=== PATIENT | female | born 1995 | race Caucasian/White ===

== ENCOUNTER 2017-03-20 22:08 | Emergency (ER) | payer MEDICAID, OTHER ==
[2017-03-20] MEDS ORDERED: Ketorolac 30 MG/ML SDV IVPUSH ONE (22:35)
[2017-03-20] MEDS ORDERED: Metoclopramide 10 MG/2 ML SDV IVPUSH ONE (22:35)
[2017-03-20] MEDS ORDERED: Sodium Chloride 0.9% 1,000 ML IV ONE (22:35)
[2017-03-20] MEDS ORDERED: diphenhydrAMINE 50 MG/ML SDV IVPUSH ONE (22:36)
--- NOTE | 2017-03-20 22:41 | EDM.PDOC ---
ED HPI GENERAL MEDICAL PROBLEM - General Chief Complaint: Headache Stated Complaint: PT HAS FEVER Time Seen by Provider: 03/20/17 22:25 - History of Present Illness INITIAL COMMENTS - FREE TEXT/NARRATIVE: HISTORY AND PHYSICAL: History of present illness: Patient 21-year-old female with history of chronic intermittent headaches this is a complex history in which patient was seen and at one point transferred to [place] she had a myriad of tests including spinal tap CT and at one point per her mother the entertain a diagnosis of pseudotumor cerebri but did eliminate this diagnosis ultimately and had prescribed her caffeine which had controlled her headaches extremely well she has had one in the last 2-1/2 years. She comes in now with fever and headache she denies neck stiffness or pain she has some photophobia no vomiting no visual disturbance or other neurological signs or symptoms she denies chest pain cough shortness of breath abdominal pain urinary symptoms Review of systems: As per history of present illness and below otherwise all systems reviewed and negative. Past medical history: As per history of present illness and as reviewed below otherwise noncontributory. Surgical history: As per history of present illness and as reviewed below otherwise noncontributory. Social history: No reported history of drug or alcohol abuse. Family history: As per history of present illness and as reviewed below otherwise noncontributory. Physical exam: HEENT: Atraumatic, normocephalic, pupils reactive, negative for conjunctival pallor or scleral icterus, mucous membranes moist, throat clear, neck supple, nontender, trachea midline. Lungs: Clear to auscultation, breath sounds equal bilaterally, chest nontender. Heart: S1S2, regular, negative for clicks, rubs, or JVD. Abdomen: Soft, nondistended, nontender. Negative for masses or hepatosplenomegaly. Negative for costovertebral tenderness. Pelvis: Stable nontender. Genitourinary: Deferred. Rectal: Deferred. Extremities: Atraumatic, negative for cords or calf pain. Neurovascular unremarkable. Neuro: Awake, alert, oriented. Cranial nerves II through XII unremarkable. Cerebellum unremarkable. Motor and sensory unremarkable throughout. Exam nonfocal. Diagnostics: CBC CMP hCG urine drug screen CT brain Therapeutics: Normal saline 1 L bolus Reglan 10 mg IV Benadryl 50 mg IV Toradol 30 mg IV Motrin 400 mg by mouth Impression: #1 cephalgia #2 fever Definitive disposition and diagnosis as appropriate pending reevaluation and review of above. headache Pain Score (Numeric/FACES): 10 - Related Data Allergies Allergy/AdvReac Type Severity Reaction Status Date / Time sertraline HCl [From Zoloft] Allergy Rash Verified 03/20/17 22:18 Home Meds: Home Meds . 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: Musculoskeletal History: Reports: None Neurological History: Reports: Migraines Psychiatric History: Reports: None Endocrine/Metabolic History: Reports: None Hematologic History: Reports: None Immunologic History: Reports: None Oncologic (Cancer) History: Reports: None Dermatologic History: Reports: None - Infectious Disease History Infectious Disease History: Reports: None Other Infectious Disease History: chlamydia - Past Surgical History Head Surgeries/Procedures: Reports: None Social & Family History - Family History Family Medical History: Noncontributory - Tobacco Use Smoking Status *Q: Current Some Day Smoker Years of Tobacco use: 1 Packs/Tins Daily: 0.5 - Caffeine Use Caffeine Use: Reports: Energy Drinks - Recreational Drug Use Recreational Drug Use: No ED ROS GENERAL - Review of Systems Review Of Systems: ROS reveals no pertinent complaints other than HPI. ED EXAM, GENERAL - Physical Exam Exam: See Below (See dictation) Course - Vital Signs Text/Narrative:: Patient had some improvement rates her headache 7 out of 10 and discuss with her spinal tap in light of her fever with no identifiable source at this time and headache patient refuses a spinal tap reevaluation continues to demonstrate a supple neck. I discussed with patient IV caffeine for her persistent headache in light of similar success prior and patient agrees. Last Recorded V/S: Last Vital Signs Temp 37.9 C 03/20/17 23:45 Pulse 102 H 03/20/17 23:45 Resp 20 03/20/17 23:45 BP 106/57 L 03/20/17 23:45 Pulse Ox 96 03/20/17 23:45 - Orders/Labs/Meds Orders: Active Orders 24 hr Category Date Time Status Chest 1V Frontal [CR] Stat Exams 03/20/17 23:49 Taken Head wo Cont [CT] Stat Exams 03/20/17 22:36 Taken Labs: Laboratory Tests 03/20/17 03/20/17 03/20/17 Range/Units 22:26 22:26 22:26 WBC (4.0-11.0) K/uL RBC (4.30-5.90) M/uL Hgb (12.0-16.0) g/dL Hct (36.0-46.0) % MCV (80.0-98.0) fL MCH (27.0-32.0) pg MCHC (31.0-37.0) g/dL RDW Std Deviation (28.0-62.0) fl RDW Coeff of Nichole (11.0-15.0) % Plt Count (150-400) K/uL MPV (7.40-12.00) fL Neut % (Auto) (48.0-80.0) % Lymph % (Auto) (16.0-40.0) % Gage % (Auto) (0.0-15.0) % Eos % (Auto) (0.0-7.0) % Baso % (Auto) (0.0-1.5) % Neut # (Auto) (1.4-5.7) K/uL Lymph # (Auto) (0.6-2.4) K/uL Gage # (Auto) (0.0-0.8) K/uL Eos # (Auto) (0.0-0.7) K/uL Baso # (Auto) (0.0-0.1) K/uL Nucleated RBC % /100WBC Nucleated RBCs # K/uL Sodium (136-146) mmol/L Potassium (3.5-5.1) mmol/L Chloride (98-110) mmol/L Carbon Dioxide (21-31) mmol/L BUN (6.0-23.0) mg/dL Creatinine (0.6-1.5) mg/dL Est Cr Clr Drug Dosing mL/min Estimated GFR (MDRD) ml/min Glucose (60-110) mg/dL Calcium (8.8-10.8) mg/dL Total Bilirubin (0.1-1.5) mg/dL AST (5-40) IU/L ALT (8-54) IU/L Alkaline Phosphatase (40-150) Total Protein (6.0-8.0) g/dL Albumin (3.5-5.0) g/dL Globulin (2.0-3.5) g/dL Albumin/Globulin Ratio (1.3-2.8) Urine Color YELLOW Urine Appearance CLEAR Urine pH 6.5 (5.0-8.0) Ur Specific [place] 1.010 (1.001-1.035) Urine Protein NEGATIVE (NEGATIVE) mg/dL Urine Glucose (UA) NEGATIVE (NEGATIVE) mg/dL Urine Ketones >=80 (NEGATIVE) mg/dL Urine Occult Blood NEGATIVE (NEGATIVE) Urine Nitrite NEGATIVE (NEGATIVE) Urine Bilirubin NEGATIVE (NEGATIVE) Urine Urobilinogen 0.2 (<2.0) EU/dL Ur Leukocyte Esterase TRACE (NEGATIVE) Urine RBC 0-2 (0-2/HPF) Urine WBC 1-3 (0-5/HPF) Ur Epithelial Cells MANY (NONE-FEW) Urine Bacteria FEW (NEGATIVE) Urine HCG, Qual NEGATIVE (NEGATIVE) Urine Opiates Screen POSITIVE (NEGATIVE) Ur Oxycodone Screen NEGATIVE (NEGATIVE) Urine Methadone Screen NEGATIVE (NEGATIVE) Ur Barbiturates Screen POSITIVE (NEGATIVE) Ur Phencyclidine Scrn NEGATIVE (NEGATIVE) Ur Amphetamine Screen NEGATIVE (NEGATIVE) U Methamphetamines Scrn NEGATIVE (NEGATIVE) U Benzodiazepines Scrn NEGATIVE (NEGATIVE) U Cocaine Metab Screen NEGATIVE (NEGATIVE) U Marijuana (THC) Screen NEGATIVE (NEGATIVE) 03/20/17 03/20/17 Range/Units 22:48 22:48 WBC 16.90 H (4.0-11.0) K/uL RBC 4.52 (4.30-5.90) M/uL Hgb 14.1 (12.0-16.0) g/dL Hct 41.3 (36.0-46.0) % MCV 91.4 (80.0-98.0) fL MCH 31.2 (27.0-32.0) pg MCHC 34.1 (31.0-37.0) g/dL RDW Std Deviation 42.4 (28.0-62.0) fl RDW Coeff of Nichole 13 (11.0-15.0) % Plt Count 238 (150-400) K/uL MPV 10.20 (7.40-12.00) fL Neut % (Auto) 79.1 (48.0-80.0) % Lymph % (Auto) 11.5 L (16.0-40.0) % Gage % (Auto) 8.9 (0.0-15.0) % Eos % (Auto) 0.4 (0.0-7.0) % Baso % (Auto) 0.1 (0.0-1.5) % Neut # (Auto) 13.4 H (1.4-5.7) K/uL Lymph # (Auto) 1.9 (0.6-2.4) K/uL Gage # (Auto) 1.5 H (0.0-0.8) K/uL Eos # (Auto) 0.1 (0.0-0.7) K/uL Baso # (Auto) 0.0 (0.0-0.1) K/uL Nucleated RBC % 0.0 /100WBC Nucleated RBCs # 0 K/uL Sodium 138 (136-146) mmol/L Potassium 3.9 (3.5-5.1) mmol/L Chloride 104 (98-110) mmol/L Carbon Dioxide 24 (21-31) mmol/L BUN 12 (6.0-23.0) mg/dL Creatinine 0.9 (0.6-1.5) mg/dL Est Cr Clr Drug Dosing 105.07 mL/min Estimated GFR (MDRD) > 60.0 ml/min Glucose 89 (60-110) mg/dL Calcium 9.1 (8.8-10.8) mg/dL Total Bilirubin 0.5 (0.1-1.5) mg/dL AST 17 (5-40) IU/L ALT 11 (8-54) IU/L Alkaline Phosphatase 120 (40-150) Total Protein 7.8 (6.0-8.0) g/dL Albumin 4.4 (3.5-5.0) g/dL Globulin 3.4 (2.0-3.5) g/dL Albumin/Globulin Ratio 1.3 (1.3-2.8) Urine Color Urine Appearance Urine pH (5.0-8.0) Ur Specific [place] (1.001-1.035) Urine Protein (NEGATIVE) mg/dL Urine Glucose (UA) (NEGATIVE) mg/dL Urine Ketones (NEGATIVE) mg/dL Urine Occult Blood (NEGATIVE) Urine Nitrite (NEGATIVE) Urine Bilirubin (NEGATIVE) Urine Urobilinogen (<2.0) EU/dL Ur Leukocyte Esterase (NEGATIVE) Urine RBC (0-2/HPF) Urine WBC (0-5/HPF) Ur Epithelial Cells (NONE-FEW) Urine Bacteria (NEGATIVE) Urine HCG, Qual (NEGATIVE) Urine Opiates Screen (NEGATIVE) Ur Oxycodone Screen (NEGATIVE) Urine Methadone Screen (NEGATIVE) Ur Barbiturates Screen (NEGATIVE) Ur Phencyclidine Scrn (NEGATIVE) Ur Amphetamine Screen (NEGATIVE) U Methamphetamines Scrn (NEGATIVE) U Benzodiazepines Scrn (NEGATIVE) U Cocaine Metab Screen (NEGATIVE) U Marijuana (THC) Screen (NEGATIVE) Meds: Medications Discontinued Medications Generic Name Dose Route Start Last Admin Trade Name Chloe PRN Reason Stop Dose Admin Acetaminophen 1,000 mg 03/20/17 22:59 03/20/17 23:17 Tylenol Extra Strength PO 03/20/17 23:00 1,000 mg ONETIME ONE Administration Diphenhydramine HCl 50 mg 03/20/17 22:36 03/20/17 22:55 Benadryl IVPUSH 03/20/17 22:37 50 mg ONETIME ONE Administration Sodium Chloride 1,000 mls @ 999 mls/hr 03/20/17 22:35 03/20/17 22:49 Normal Saline IV 03/20/17 23:35 999 mls/hr .Bolus ONE Administration Caffeine Citrated 500 mg/ 75 mls @ 200 mls/hr 03/20/17 23:53 Dextrose/Water IV 03/21/17 00:15 ONETIME ONE Caffeine Citrated 240 mg/ 62 mls @ 124 mls/hr 03/21/17 00:15 03/21/17 00:29 Dextrose/Water IV 03/21/17 00:44 124 mls/hr ONETIME ONE Administration Ketorolac Tromethamine 30 mg 03/20/17 22:35 03/20/17 22:52 Toradol IVPUSH 03/20/17 22:36 30 mg ONETIME ONE Administration Metoclopramide HCl 10 mg 03/20/17 22:35 03/20/17 22:50 Reglan IVPUSH 03/20/17 22:36 10 mg ONETIME ONE Administration Departure - Departure Time of Disposition: 00:44 Disposition: Against Medical Advice 07 Condition: Good Clinical Impression: Cephalgia, Leukocytosis, Fever - Discharge Information Referrals: PCP,None [Primary Care Provider] - Forms: ED Department Discharge Additional Instructions: The following information is given to patients seen in the emergency department who are being discharged to home. This information is to outline your options for follow-up care. We provide all patients seen in our emergency department with a follow-up referral. The need for follow-up, as well as the timing and circumstances, are variable depending upon the specifics of your emergency department visit. If you don't have a primary care physician on staff, we will provide you with a referral. We always advise you to contact your personal physician following an emergency department visit to inform them of the circumstance of the visit and for follow-up with them and/or the need for any referrals to a consulting specialist. The emergency department will also refer you to a specialist when appropriate. This referral assures that you have the opportunity for followup care with a specialist. All of these measure are taken in an effort to provide you with optimal care, which includes your followup. Under all circumstances we always encourage you to contact your private physician who remains a resource for coordinating your care. When calling for followup care, please make the office aware that this follow-up is from your recent emergency room visit. If for any reason you are refused follow-up, please contact the [facility] emergency department at and asked to speak to the emergency department charge nurse. [facility] - Neurology Professional [address], [address] [place] [address] Motrin/Tylenol as directed Follow-up FIDELIA with private medical doctor push fluids call to schedule appointment with neurology above return as needed as discussed - My Orders Last 24 Hours: My Active Orders 03/20/17 22:36 Head wo Cont [CT] Stat 03/20/17 23:49 Chest 1V Frontal [CR] Stat - Assessment/Plan Last 24 Hours: My Active Orders 03/20/17 22:36 Head wo Cont [CT] Stat 03/20/17 23:49 Chest 1V Frontal [CR] Stat
[2017-03-20] MEDS ORDERED: Acetaminophen 500 MG Tab PO ONE (22:59)
[2017-03-20 23:12] LABS: CHLORIDE,CL 104 mmol/L (98-110); SODIUM,NA 138 mmol/L (136-146)
[2017-03-21] MEDS ORDERED: WATER IV ONE ×2 (00:15)
[2017-03-21] MEDS ORDERED: CAFFEINE CITRATE IV ONE ×2 (00:15)
[2017-03-21] MEDS ORDERED: DEXTROSE 5% IV ONE ×2 (00:15)
[2017-03-21 01:27] VITALS: BP 116/57
--- NOTE | 2017-03-24 13:04 | CT ---
EXAM DATE: 03/20/17 PATIENT'S AGE: 21 Patient: SHAYLEE BLANK Facility: [place], [place] Site . Site : 1995 Study: CT Head [id number] 11:22:06 PM Ordering Physician: Ivelisse Cotton Final Report: INDICATION: Headache and Fever TECHNIQUE: CT Head without i.v. contrast. COMPARISON: 01/30/10 FINDINGS: CSF spaces: Within normal limits for age. Brain parenchyma: The brain parenchyma is normal in appearance with preservation of the roa-white matter junction. No sign of mass, hemorrhage, or midline shift. Skull base and calvarium: Mild mucosal thickening seen in the right sphenoid sinus. The mastoid air cells are clear. The visualized orbits are grossly unremarkable. No skull fractures are seen. IMPRESSION: 1. No CT evidence of acute infarct, hemorrhage, or mass effect seen. 2. Mild mucosal thickening seen in the right sphenoid sinus. Dictated by: Christian Ellington MD @ 03/20/2017 23:35:56 (Electronic Signature) Report Signed by Proxy. BEENA
--- NOTE | 2017-03-24 13:05 | CR ---
EXAM DATE: 03/20/17 PATIENT'S AGE: 21 Patient: SHAYLEE BLANK Facility: [place], [place] Site . Site : 1995 Study: XRay Chest [id number]/2/2017 12:01:50 AM Ordering Physician: Ivelisse Cotton Final Report: INDICATION: Headache and Fever TECHNIQUE: Chest radiograph 1 view COMPARISON: None FINDINGS: Cardiovascular and mediastinum: The cardiac silhouette is normal in appearance and size. Mediastinum is within normal limits. Lungs and pleural space: Both lungs are unremarkable in appearance. No sign of pleural effusion. No pneumothorax is seen. Bones and soft tissues: No significant findings. IMPRESSION: 1. No acute cardiopulmonary disease seen. Dictated by: Christian Ellington MD @ 03/21/2017 00:02:29 (Electronic Signature) Report Signed by Proxy. [facility]
== END 2017-03-21 01:06 | disposition left against medical advice (07) ==
LOC: MW.ED 22:08
DX: R51 Headache (principal); D72.829 Elevated white blood cell count, unspecified; F17.210 Nicotine dependence, cigarettes, uncomplicated; Z88.8 Allergy status to other drugs, medicaments and biological substances; Z87.442 Personal history of urinary calculi; Z87.440 Personal history of urinary (tract) infections
CPT/HCPCS: 36415; 70450; 71010; 80053; 80305; 81001; 81025; 85025; 96361; 96365; 96375; 99284; A9270; J0706; J1200; J1885; J2765; J7040; J7060; 99283

== ENCOUNTER 2019-05-20 06:42 | Day surgery (SDC) | payer BC ==
[~2019-05-20 06:42] MED LIST: Lactated Ringers 1,000 ML IV SCH; Sodium Chloride 0.9% 10 ML SDV IV PRN; Sodium Chloride 0.9% 10 ML Syringe FLUSH PRN; Sodium Chloride 0.9% 2.5 ML Syringe FLUSH PRN
[2019-05-20] MEDS ORDERED: Propofol 200 MG/20 ML SDV ONE (07:32)
[2019-05-20] MEDS ORDERED: fentaNYL 250 MCG/5 ML SDV ONE (07:32)
[2019-05-20] MEDS ORDERED: Midazolam 1 MG/ML 2 ML SDV ONE (07:32)
[2019-05-20] MEDS ORDERED: Ondansetron 4 MG/2 ML SDV ONE ×2 (07:34→10:37)
[2019-05-20] MEDS ORDERED: Ketorolac 30 MG/ML SDV ONE (07:34)
[2019-05-20] MEDS ORDERED: Glycopyrrolate 0.2 MG/ML SDV ONE (07:34)
[2019-05-20] MEDS ORDERED: Lidocaine 2% 5 ML SDV ONE (07:34)
[2019-05-20] MEDS ORDERED: Dexamethasone 4 MG/ML 5 ML MDV ONE (07:35)
[2019-05-20] MEDS ORDERED: Sugammadex Sodium 200 MG/2 ML VIAL ONE (07:37)
--- NOTE | 2019-05-20 07:37 | PCM.PREANE ---
Preanesthetic Assessment - Anesthesia/Transfusion/Family Hx Anesthesia History: No Prior Anesthesia Family History of Anesthesia Reaction: No Transfusion History: No Prior Transfusion(s) Intubation History: Unknown - Review of Systems General: No Symptoms Pulmonary: No Symptoms Cardiovascular: No Symptoms Gastrointestinal: No Symptoms Neurological: No Symptoms Other: Reports: None - Physical Assessment NPO Status Date: 05/19/19 NPO Status Time: 23:30 Vital Signs: Last Vital Signs Temp 36.6 C 05/20/19 06:50 Pulse 99 05/20/19 06:50 Resp 20 05/20/19 06:50 BP 123/62 05/20/19 06:50 Pulse Ox 95 05/20/19 06:50 Height: 5 ft 9 in Weight: 83.461 kg ASA Class: 2 Mental Status: Alert & Oriented x3 Airway Class: Mallampati = 1 Dentition: Reports: Normal Dentition Thyro-Mental Finger Breadths: 3 Mouth Opening Finger Breadths: 3 ROM/Head Extension: Full Lungs: Clear to Auscultation, Normal Respiratory Effort Cardiovascular: Regular Rate, Regular Rhythm - Lab Values: Laboratory Last Values WBC 17.24 K/uL (4.0-11.0) H 05/19/19 15:47 RBC 4.34 M/uL (4.30-5.90) 05/19/19 15:47 Hgb 13.3 g/dL (12.0-16.0) 05/19/19 15:47 Hct 40.1 % (36.0-46.0) 05/19/19 15:47 MCV 92.4 fL (80.0-98.0) 05/19/19 15:47 MCH 30.6 pg (27.0-32.0) 05/19/19 15:47 MCHC 33.2 g/dL (31.0-37.0) 05/19/19 15:47 RDW Std Deviation 43.2 fl (28.0-62.0) 05/19/19 15:47 RDW Coeff of Nichole 13 % (11.0-15.0) 05/19/19 15:47 Plt Count 278 K/uL (150-400) 05/19/19 15:47 MPV 10.50 fL (7.40-12.00) 05/19/19 15:47 Nucleated RBC % 0.0 /100WBC 05/19/19 15:47 Nucleated RBCs # 0 K/uL 05/19/19 15:47 HCG, Qual NEGATIVE (NEG) 05/19/19 15:47 Blood Type A NEGATIVE 05/19/19 15:47 Antibody Screen NEGATIVE 05/19/19 15:47 - Allergies Allergies/Adverse Reactions: Allergies Allergy/AdvReac Type Severity Reaction Status Date / Time sertraline HCl [From Zoloft] Allergy Rash Verified 05/16/19 17:06 - Blood Blood Available: No - Anesthesia Plan Pre-Op Medication Ordered: None - Acknowledgements Anesthesia Type Planned: General Anesthesia Pt an Appropriate Candidate for the Planned Anesthesia: Yes Alternatives and Risks of Anesthesia Discussed w Pt/Guardian: Yes Pt/Guardian Understands and Agrees with Anesthesia Plan: Yes PreAnesthesia Questionnaire HEENT History: Reports: None Cardiovascular History: Reports: None Other Cardiovascular History: was hypertensive after the delivery of first child - took no medications- resolved Respiratory History: Reports: None Gastrointestinal History: Reports: None Genitourinary History: Reports: Renal Calculus, UTI, 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: Reports: , Other (See Below) (ovarian cyst) Musculoskeletal History: Neurological History: Reports: Migraines Psychiatric History: Reports: None Endocrine/Metabolic History: Reports: None Hematologic History: Reports: None Immunologic History: Reports: None Oncologic (Cancer) History: Reports: None Dermatologic History: Reports: Other (See Below) Other Dermatologic History: hx of "boils" that were MRSA - Infectious Disease History Infectious Disease History: Reports: None Other Infectious Disease History: chlamydia - Past Surgical History Head Surgeries/Procedures: Reports: None - SUBSTANCE USE Smoking Status *Q: Former Smoker Tobacco Use Within Last Twelve Months: Cigarettes Recreational Drug Use History: No - HOME MEDS Home Medications: Home Meds Acetaminophn/Pyril Mal/Caffein [Midol Caplet] 1 tab PO Q6H PRN 05/16/19 [History ] Butalb/Acetaminophen/Caffeine [Owctgw-[id number] 50-300-40] 1 cap PO Q6H PRN 05/16/19 [History] Ibuprofen [Advil] 400 mg PO QID PRN 05/16/19 [History] Levonorgestrel [Mirena] 1 unit VAG ONETIME 05/16/19 [History] - CURRENT (IN HOUSE) MEDS Current Meds: Current Medications Lactated Ringer's (Ringers, Lactated) 1,000 mls @ 125 mls/hr IV ASDIRECTED SUN Last Admin: 05/20/19 07:00 Dose: 125 mls/hr Sodium Chloride (Saline Flush) 10 ml FLUSH ASDIRECTED PRN PRN Reason: Keep Vein Open Sodium Chloride (Saline Flush) 2.5 ml FLUSH ASDIRECTED PRN PRN Reason: Keep Vein Open Sodium Chloride (Normal Saline) 10 ml IV ASDIRECTED PRN PRN Reason: IV Use Discontinued Medications Fentanyl (Sublimaze) Confirm Administered Dose 250 mcg .ROUTE .STK-MED ONE Stop: 05/20/19 07:33 Glycopyrrolate (Robinul) Confirm Administered Dose 0.2 mg .ROUTE .STK-MED ONE Stop: 05/20/19 07:35 Ketorolac Tromethamine (Toradol) Confirm Administered Dose 30 mg .ROUTE .STK- MED ONE Stop: 05/20/19 07:35 Lidocaine (Xylocaine-Mpf 2%) Confirm Administered Dose 5 ml .ROUTE .STK-MED ONE Stop: 05/20/19 07:35 Midazolam HCl (Versed 1 Mg/Ml) Confirm Administered Dose 2 mg .ROUTE .STK-MED ONE Stop: 05/20/19 07:33 Ondansetron HCl (Zofran) Confirm Administered Dose 4 mg .ROUTE .STK-MED ONE Stop: 05/20/19 07:35 Propofol (Diprivan 20 Ml) Confirm Administered Dose 200 mg .ROUTE .STK-MED ONE Stop: 05/20/19 07:33
[2019-05-20] MEDS ORDERED: Bupivacaine 0.25% 10 ML SDV ONE (07:45)
[2019-05-20] MEDS ORDERED: Phenylephrine/Normal Saline 100 MCG/ML 10 ML Syringe ONE (08:14)
[2019-05-20] MEDS ORDERED: fentaNYL 100 MCG/2 ML SDV ONE ×2 (08:43→10:01)
[2019-05-20] MEDS ORDERED: Octyl 2-Cyanoacrylate 1 Tube ONE (09:13)
[2019-05-20] MEDS ORDERED: CAFFEINE PO PRN (09:36)
[2019-05-20] MEDS ORDERED: BUTALB PO PRN (09:36)
[2019-05-20] MEDS ORDERED: [UNRECOGNIZED DRUG - OTHER] PO PRN (09:36)
[2019-05-20] MEDS ORDERED: Ibuprofen 200 MG Tab PO PRN (09:36)
[2019-05-20] MEDS ORDERED: ACETAMINOPHEN PO PRN (09:36)
[2019-05-20] MEDS ORDERED: [UNRECOGNIZED DRUG - OTHER] PO PRN (09:36)
[2019-05-20] MEDS ORDERED: Acetaminophen/HYDROcodone 325-5 MG Tab PO PRN (09:37)
[2019-05-20] MEDS ORDERED: LEVONORGESTREL VAG SCH (09:45)
--- NOTE | 2019-05-20 09:48 | PCM.OPNOTE ---
- General Post-Op/Procedure Note Date of Surgery/Procedure: 05/20/19 Operative Procedure(s): Laparoscopic left salpingo-oophorectomy. Left cul-de- sac peritoneal biopsy Findings: 4cm dermoid cyst adhered to left ovary without normal ovarian tissue identified Normal-appearing uterus, right ovary, and tubes Normal-appearing liver and gallbladder Mirena IUD strings visible from cervix Pre Op Diagnosis: Suspected left ovarian dermoid cyst. Pelvic pain. Dyspareunia Post-Op Diagnosis: Left ovarian dermoid. Pelvic pain. Dyspareunia. Suspected endometriosis Anesthesia Technique: General ET Tube Primary Surgeon: Renee Fowler Exhaust Worker: Slime Mejia Pathology: Left ovary and tube, left cul-de-sac peritoneal biopsy Fluid Replacement, Intraop: 1,100 Output, Urine Amount: 50 EBL in mLs: 10 Complications: None Condition: Good
[2019-05-20] MEDS ORDERED: fentaNYL 100 MCG/2 ML SDV IVPUSH PRN (09:57)
--- NOTE | 2019-05-20 10:18 | PCM.POSTAN ---
POST ANESTHESIA ASSESSMENT - MENTAL STATUS Mental Status: Alert, Oriented - VITAL SIGNS Vital Signs: Last Vital Signs Temp 36.5 C 05/20/19 09:37 Pulse 69 05/20/19 10:12 Resp 19 05/20/19 10:12 BP 122/61 05/20/19 10:12 Pulse Ox 96 05/20/19 10:12 - RESPIRATORY Respiratory Status: Respiratory Rate WNL, Airway Patent, O2 Saturation Stable - CARDIOVASCULAR CV Status: Pulse Rate WNL, Blood Pressure Stable - GASTROINTESTINAL GI Status: No Symptoms - PAIN Pain Score: 5 (migrain) - POST OP HYDRATION Hydration Status: Adequate & Stable - OBSERVATIONS Free Text/Narrative:: no anesthesia problems
[2019-05-20] MEDS ORDERED: Ondansetron 4 MG/2 ML SDV IVPUSH ONE (10:36)
[2019-05-20] MEDS ORDERED: Acetaminophen/Butalbital/Caffeine 325-50-40 MG Tab PO ONE (10:44)
[2019-05-20 11:36] VITALS: BP 102/47; PULSE 71
--- NOTE | 2019-05-20 12:16 | PCM48HPAN ---
Post Anesthesia Note - EVALUATION WITHIN 48HRS OF ANESTHETIC Vital Signs in Normal Range: Yes Patient Participated in Evaluation: Yes Respiratory Function Stable: Yes Airway Patent: Yes Cardiovascular Function Stable: Yes Hydration Status Stable: Yes Pain Control Satisfactory: Yes Nausea and Vomiting Control Satisfactory: Yes Mental Status Recovered: Yes Vital Signs: Last Vital Signs Temp 36.3 C 05/20/19 10:19 Pulse 71 05/20/19 11:29 Resp 16 05/20/19 11:29 BP 102/47 L 05/20/19 11:29 Pulse Ox 96 05/20/19 11:29 - COMMENTS/OBSERVATIONS Free Text/Narrative:: No anesthesia problems
--- NOTE | 2019-05-20 12:17 | OR ---
SURGEON: Renee Fowler MD DATE OF PROCEDURE: 05/20/2019 PREOPERATIVE DIAGNOSES: 1. Suspected left ovarian dermoid cyst. 2. Pelvic pain. 3. Dyspareunia. POSTOPERATIVE DIAGNOSES: 1. Left ovarian dermoid cyst. 2. Pelvic pain. 3. Dyspareunia. 4. Suspected endometriosis. PROCEDURE: 1. Laparoscopic left salpingo-oophorectomy. 2. Left cul-de-sac peritoneal biopsy. PRIMARY SURGEON: Renee Fowler MD. [place]: Deejay Mejia, medical student. ANESTHESIA: General endotracheal. IV FLUIDS: 1100 mL. URINE OUTPUT: 50 mL. ESTIMATED BLOOD LOSS: 10 mL. PATHOLOGY: 1. Left ovarian tube. 2. Left cul-de-sac peritoneal biopsy. FINDINGS: 1. 4 cm dermoid cyst anterior to the left ovary without normal ovarian tissue identified. 2. Normal-appearing uterus, right ovary, and tube. 3. Normal-appearing liver and gallbladder. 4. Mirena IUD strings visible from cervix. COMPLICATIONS: None. INDICATIONS: This is a 24-year-old, G2, P2, who presented to clinic with pelvic pain and dyspareunia and ultrasound was obtained to evaluate for pelvic pain with a subsequent CT of the abdomen and pelvis, a 4 cm dermoid cyst is suspected based on imaging. After discussion of expectant management versus removal of this dermoid cyst, the patient opted for removal. The risks of surgery were discussed with patient and she desired to proceed. DESCRIPTION OF PROCEDURE: The patient was taken the operating room where general anesthesia was obtained without difficulty. She was placed in the dorsal lithotomy position with legs in Yellofins stirrups. She was prepared and draped in the normal sterile fashion. A Castano catheter was inserted. After an appropriate time-out was held, a speculum was placed into the vagina. A [employer]odgesl[employer]rigo uterine manipulator was placed in the cervix for uterine manipulation. The speculum was removed from the vagina. Surgeon's gloves were changed. Attention was then turned to the abdomen. A 0.5% lidocaine without epinephrine was infiltrated into the infraumbilical fold. A 5 mm incision was made in the skin with the scalpel. A 5 mm trocar was inserted under direct visualization. The abdomen was insufflated. A survey of the abdomen and pelvis was performed, which revealed the above findings. Bilateral lower abdominal trocars were inserted under direct visualization after infiltration with lidocaine 2 cm superior and medial to the anterior superior iliac spine making sure to avoid the lateral umbilical ligament. The pelvis was again surveyed. Suspected endometriosis was seen in the cul-de-sac. The left ovary was identified and inspected. No normal ovarian tissue was identifiable separate from this suspected dermoid cyst. At this time, it was decided that an oophorectomy was the safest procedure for the patient. The left ureter was identified to be peristalsing. The ligature was then used to clamp, coagulate, and transect the left infundibulopelvic ligament and continued through the broad ligament. The ovary and fallopian tube were clamped, coagulated, and transected from the uterus with the LigaSure. Excellent hemostasis was noted. The pelvis was thoroughly irrigated. Peritoneal biopsies of the left cul-de-sac were obtained for evaluation. The right lower quadrant trocar was removed and a 12 mm trocar was inserted. A laparoscopic catch bag was introduced into the pelvis. The left tube and ovary were inserted into the catch bag and was removed from the pelvis. All instruments were removed from the abdomen and the abdomen was desufflated. The fascia of the right lower quadrant trocar site was closed with a running stitch of 0 Vicryl suture. All skin incisions were closed with 4-0 Monocryl. Attention was then turned to the vagina. A speculum was placed in the vagina. The Hulka manipulator was removed with care to not dislodge the IUD. Hemostasis was noted. The speculum was removed from the vagina. The dermoid was opened on the Choudhury stand. The hair and adipose tissue were noted within the dermoid. The patient was awakened from general anesthesia without difficulty. She tolerated the procedure well. All sponge, lap, and needle counts were correct. [id number] / MODL /[id number] BEENA
== END 2019-05-20 13:02 | disposition home or self-care (01) ==
LOC: MW.SDS 06:42
PROVIDERS: ATTEND Obstetrics & Gynecology
DX: D27.1 Benign neoplasm of left ovary (principal); N83.8 Other noninflammatory disorders of ovary, fallopian tube and broad ligament; G43.909 Migraine, unspecified, not intractable, without status migrainosus; Z88.8 Allergy status to other drugs, medicaments and biological substances; Z97.5 Presence of (intrauterine) contraceptive device
CPT/HCPCS: 36415; 49321; 58661; 84703; 85027; 86850; 86900; 86901; 88305; 88307; A9270; J1100; J1885; J2001; J2250; J2370; J2405; J2704; J3010; J3490; J7120

== ENCOUNTER 2020-08-10 00:14 | Inpatient (IN) | payer BC ==
[2020-08-10] MEDS ORDERED: Ondansetron 4 MG/2 ML SDV IVPUSH PRN (00:24)
[2020-08-10] MEDS ORDERED: Water For Irrigation,Sterile 1,000 ML Container IRR PRN (00:24)
[2020-08-10] MEDS ORDERED: Misoprostol 200 MCG Tab PO PRN (00:24)
[2020-08-10] MEDS ORDERED: Sodium Chloride 0.9% 10 ML SDV IV PRN (00:24)
[2020-08-10] MEDS ORDERED: Ampicillin 2 GM in Sodium Chloride 0.9% 100 ML IV ONE (00:24)
[2020-08-10] MEDS ORDERED: Methylergonovine 0.2 MG/1 ML Amp IM PRN (00:24)
[2020-08-10] MEDS ORDERED: Tranexamic Acid 1,000 MG in Sodium Chloride 0.9% 100 ML IV PRN (00:24)
[2020-08-10] MEDS ORDERED: Lidocaine 1% 50 ML MDV INJECT PRN (00:24)
[2020-08-10] MEDS ORDERED: Sodium Chloride 0.9% 10 ML Syringe FLUSH PRN (00:24)
[2020-08-10] MEDS ORDERED: Nalbuphine 10 MG/1 ML Vial IVPUSH PRN (00:24)
[2020-08-10] MEDS ORDERED: Butorphanol 1 MG/ML SDV IVPUSH PRN (00:24)
[2020-08-10] MEDS ORDERED: Terbutaline 1 MG/ML SDV SUBCUT PRN (00:24)
[2020-08-10] MEDS ORDERED: Carboprost Tromethamine 250 MCG/1 ML Amp IM PRN (00:24)
[2020-08-10] MEDS ORDERED: Sodium Chloride 0.9% 2.5 ML Syringe FLUSH PRN (00:24)
[2020-08-10] MEDS ORDERED: Oxytocin/0.9 % Sodium Chloride 30 UNIT/500 ML BAG IV SCH ×2 (00:30)
[2020-08-10] MEDS: Lactated Ringers 1,000 ML IV SCH ×3 (01:00→10:34)
[2020-08-10] MEDS: Ampicillin 1 GM in Sodium Chloride 0.9% 50 ML IV SCH ×3 (05:05→13:13)
[2020-08-10] MEDS ORDERED: Ampicillin 1 GM Vial ONE ×2 (09:46→13:09)
[2020-08-10] MEDS ORDERED: Sodium Chloride 0.9% 50 ML ONE ×2 (09:46→13:09)
[2020-08-10] MEDS ORDERED: Ropivacaine HCl/PF 100 ML ONE (10:20)
[2020-08-10] MEDS ORDERED: fentaNYL 100 MCG/2 ML SDV ONE (10:20)
--- NOTE | 2020-08-10 11:09 | PCM.PREANE ---
Preanesthetic Assessment - Procedure Proposed Procedure: Continuous Labor Epidural - Anesthesia/Transfusion/Family Hx Anesthesia History: Prior Anesthesia Without Reaction Transfusion History: No Prior Transfusion(s) Intubation History: Unknown - Review of Systems General: No Symptoms Pulmonary: No Symptoms Cardiovascular: No Symptoms Gastrointestinal: No Symptoms Neurological: No Symptoms Other: Reports: None - Physical Assessment Height: 6 ft Weight: 103.419 kg ASA Class: 2 Mental Status: Alert & Oriented x3 Airway Class: Mallampati = 2 Dentition: Reports: Normal Dentition Thyro-Mental Finger Breadths: 3 Mouth Opening Finger Breadths: 3 ROM/Head Extension: Full Lungs: Clear to Auscultation, Normal Respiratory Effort Cardiovascular: Regular Rate, Regular Rhythm - Lab Values: Laboratory Last Values WBC 18.65 K/uL (4.0-11.0) H 08/10/20 00:45 RBC 3.72 M/uL (4.30-5.90) L 08/10/20 00:45 Hgb 11.1 g/dL (12.0-16.0) L 08/10/20 00:45 Hct 33.4 % (36.0-46.0) L 08/10/20 00:45 MCV 89.8 fL (80.0-98.0) 08/10/20 00:45 MCH 29.8 pg (27.0-32.0) 08/10/20 00:45 MCHC 33.2 g/dL (31.0-37.0) 08/10/20 00:45 RDW Std Deviation 43.0 fl (28.0-62.0) 08/10/20 00:45 RDW Coeff of Nichole 14 % (11.0-15.0) 08/10/20 00:45 Plt Count 297 K/uL (150-400) 08/10/20 00:45 MPV 10.80 fL (7.40-12.00) 08/10/20 00:45 Blood Type A NEGATIVE 08/10/20 00:45 Antibody Screen NEGATIVE 08/10/20 00:45 - Allergies Allergies/Adverse Reactions: Allergies Allergy/AdvReac Type Severity Reaction Status Date / Time sertraline HCl [From Zoloft] Allergy Rash Verified 05/16/19 17:06 tramadol Allergy Rash Verified 08/10/20 02:37 - Anesthesia Plan Free Text/Narrative:: Continuous Labor Epidural Pre-Op Medication Ordered: None - Acknowledgements Anesthesia Type Planned: Epidural Pt an Appropriate Candidate for the Planned Anesthesia: Yes Alternatives and Risks of Anesthesia Discussed w Pt/Guardian: Yes Pt/Guardian Understands and Agrees with Anesthesia Plan: Yes PreAnesthesia Questionnaire HEENT History: Reports: None Cardiovascular History: Reports: None Other Cardiovascular History: was hypertensive after the delivery of first child- took no medications- resolved Respiratory History: Reports: None Gastrointestinal History: Reports: None Genitourinary History: Reports: UTI, Recurrent Other Genitourinary History: Pyelonephritis [employer] History: Reports: : 3 Para: 2 LMP (Approximate): Musculoskeletal History: Reports: None Neurological History: Reports: Migraines Psychiatric History: Reports: None Endocrine/Metabolic History: Reports: None Hematologic History: Reports: None Immunologic History: Reports: None Oncologic (Cancer) History: Reports: None Dermatologic History: Reports: None Other Dermatologic History: hx of "boils" that were MRSA - Infectious Disease History Infectious Disease History: Reports: None Other Infectious Disease History: chlamydia - Past Surgical History Head Surgeries/Procedures: Reports: None - SUBSTANCE USE Tobacco Use Status *Q: Former Tobacco User Tobacco Use Within Last Twelve Months: Cigarettes Second Hand Smoke Exposure: Yes Recreational Drug Use History: No - HOME MEDS Home Medications: Home Meds Acetaminophen/Pyrilamine/Caff [Midol Caplet] 1 tab PO Q6H PRN 05/16/19 [History] Butalb/Acetaminophen/Caffeine [Vartjh-Ycoeemro-Enkl 50-300-40] 1 cap PO Q6H PRN 05/16/19 [History] Ibuprofen [Advil] 400 mg PO QID PRN 05/16/19 [History] levonorgestreL [Mirena] 1 unit VAG ONETIME 05/16/19 [History] Acetaminophen/HYDROcodone [[place] 325-5 MG] 1 tab PO Q6H PRN #10 tablet 05/20/19 [Rx] - CURRENT (IN HOUSE) MEDS Current Meds: Current Medications Butorphanol Tartrate (Stadol) 1 mg IVPUSH Q1H PRN PRN Reason: Pain Carboprost Tromethamine (Hemabate Ds) 250 mcg IM ASDIRECTED PRN PRN Reason: Post Hemorrhage Oxytocin/Sodium Chloride (Oxytocin 30 Unit/500 Ml-Ns) 30 unit in 500 mls @ 999 mls/hr IV TITRATE SUN Tranexamic Acid 1,000 mg/ (Sodium Chloride) 110 mls @ 660 mls/hr IV ONETIME PRN PRN Reason: Bleeding Oxytocin/Sodium Chloride (Oxytocin 30 Unit/500 Ml-Ns) 30 unit in 500 mls @ 2 mls/hr IV TITRATE [facility]; Protocol Last Titration: 08/10/20 04:45 Dose: 16 munits/min, 16 mls/hr Documented by: Lactated Ringer's (Ringers, Lactated) 1,000 mls @ 150 mls/hr IV ASDIRECTED [facility] Last Admin: 08/10/20 10:34 Dose: 999 mls/hr Documented by: Ampicillin Sodium 1 gm/ Sodium (Chloride) 50 mls @ 100 mls/hr IV Q4H [facility] Last Admin: 08/10/20 09:47 Dose: 100 mls/hr Documented by: Lidocaine HCl (Xylocaine 1%) 50 ml INJECT ONETIME PRN PRN Reason: Laceration repair Methylergonovine Maleate (Methergine) 0.2 mg IM ASDIRECTED PRN PRN Reason: Post Hemorrhage Misoprostol (Cytotec) 200 mcg PO ONETIME PRN PRN Reason: Post Hemorrhage Nalbuphine HCl (Nubain) 10 mg IVPUSH Q1H PRN PRN Reason: Pain (severe 7-10) Ondansetron HCl (Zofran) 4 mg IVPUSH Q6H PRN PRN Reason: Nausea/Vomiting Sodium Chloride (Saline Flush) 10 ml FLUSH ASDIRECTED PRN PRN Reason: Keep Vein Open Sodium Chloride (Saline Flush) 2.5 ml FLUSH ASDIRECTED PRN PRN Reason: Keep Vein Open Sodium Chloride (Normal Saline) 10 ml IV ASDIRECTED PRN PRN Reason: IV Use Sterile Water (Sterile Water For Irrigation) 1,000 ml IRR ASDIRECTED PRN PRN Reason: delivery Terbutaline Sulfate (Brethine) 0.25 mg SUBCUT ASDIRECTED PRN PRN Reason: Tacysystole Discontinued Medications Ampicillin Sodium (Ampicillin) Confirm Administered Dose 1 gm .ROUTE .[facility]-MED ONE Stop: 08/10/20 09:47 Last Admin: 08/10/20 09:51 Dose: Not Given Documented by: Fentanyl (Sublimaze) Confirm Administered Dose 200 mcg .ROUTE .[facility]-MED ONE Stop: 08/10/20 10:21 Ampicillin Sodium 2 gm/ Sodium (Chloride) 100 mls @ 200 mls/hr IV ONETIME ONE Stop: 08/10/20 00:53 Last Admin: 08/10/20 01:00 Dose: 200 mls/hr Documented by: Sodium Chloride (Normal Saline) Confirm Administered Dose 50 mls @ as [facility] Stop: 08/10/20 09:47 Last Admin: 08/10/20 09:51 Dose: Not Given Documented by: Ropivacaine (Naropin 0.2%) Confirm Administered Dose 100 mls @ as directed .ROUTE .[facility] ONE Stop: 08/10/20 10:21
[2020-08-10] MEDS ORDERED: Lanolin 100% Cream 7 GM Tube TOP PRN (14:20)
[2020-08-10] MEDS ORDERED: oxyCODONE 5 MG Tab PO PRN (14:20)
[2020-08-10] MEDS ORDERED: Benzocaine/Menthol 20%-0.5% Spray 78 GM Cannister TOP PRN (14:20)
[2020-08-10] MEDS ORDERED: Bisacodyl 10 MG Supp RECTAL PRN (14:20)
[2020-08-10] MEDS ORDERED: Witch Hazel Medicated Pads 40/Jar TOP PRN (14:20)
[2020-08-10] MEDS ORDERED: Measles, Mumps & Rubella Vaccine 0.5 ML SDV SUBCUT ONE (14:29)
--- NOTE | 2020-08-10 14:29 | PCM.DEL ---
L & D Note - General Info Date of Service: 08/10/20 Mother's Due Date: 08/15/20 - Delivery Note Labor: Induced by Oxytocin Delivery Outcome: Livebirth Infant Delivery Method: Spontaneous Vaginal Delivery-Single Presentation: Vertex Nuchal Cord: None Anesthesia Type: Epidural Amniotic Fluid Description: Clear Episiotomy Type: None Laceration: None Placenta: Intact, Spontaneous Cord: 3 Vessels Estimated Blood Loss: 400 Resuscitation Needed: No [place]: Bulb Syringe, Stimulated, Warmed Score 1 min: 9 Score 5 min: 9 Second Stage Interventions: Reports: Pushing, Stirrups/Leg Supports Delivery Comments (Free Text/Narrative):: Live female infant, weight pending, [place] - General Info Date of Service: 08/10/20 - Patient Data Weight - Most Recent: 103.419 kg Lab Results Last 24 Hours: Laboratory Results - last 24 hr 08/10/20 08/10/20 Range/Units 00:45 00:45 WBC 18.65 H (4.0-11.0) K/uL RBC 3.72 L (4.30-5.90) M/uL Hgb 11.1 L (12.0-16.0) g/dL Hct 33.4 L (36.0-46.0) % MCV 89.8 (80.0-98.0) fL MCH 29.8 (27.0-32.0) pg MCHC 33.2 (31.0-37.0) g/dL RDW Std Deviation 43.0 (28.0-62.0) fl RDW Coeff of Nichole 14 (11.0-15.0) % Plt Count 297 (150-400) K/uL MPV 10.80 (7.40-12.00) fL Blood Type A NEGATIVE Antibody Screen NEGATIVE Med Orders - Current: Current Medications Acetaminophen (Tylenol Extra Strength) 1,000 mg PO Q6H PRN PRN Reason: Pain Benzocaine/Menthol (Dermoplast Pain Relief 20%-0.5% [place]) 78 gm TOP ASDIRECTED PRN PRN Reason: Perineal Comfort Measure Bisacodyl (Dulcolax) 10 mg RECTAL ONETIME PRN PRN Reason: Constipation Docusate Sodium (Colace) 100 mg PO BID PRN PRN Reason: Constipation Emollient Ointment (Lansinoh Hpa) 0 gm TOP ASDIRECTED PRN PRN Reason: Sore Nipples Oxytocin/Sodium Chloride (Oxytocin 30 Unit/500 Ml-Ns) 30 unit in 500 mls @ 999 mls/hr IV TITRATE SUN Oxytocin/Sodium Chloride (Oxytocin 30 Unit/500 Ml-Ns) 30 unit in 500 mls @ 2 mls/hr IV TITRATE [facility]; Protocol Last Titration: 08/10/20 04:45 Dose: 16 munits/min, 16 mls/hr Documented by: Lactated Ringer's (Ringers, Lactated) 1,000 mls @ 150 mls/hr IV ASDIRECTED SUN Last Admin: 08/10/20 10:34 Dose: 999 mls/hr Documented by: Ibuprofen (Motrin) 800 mg PO Q8H PRN PRN Reason: Pain Lidocaine HCl (Xylocaine 1%) 50 ml INJECT ONETIME PRN PRN Reason: Laceration repair Nalbuphine HCl (Nubain) 10 mg IVPUSH Q1H PRN PRN Reason: Pain (severe 7-10) Ondansetron HCl (Zofran) 4 mg IVPUSH Q6H PRN PRN Reason: Nausea/Vomiting Oxycodone HCl (Oxycodone) 5 mg PO Q2H PRN PRN Reason: Pain Sodium Chloride (Saline Flush) 10 ml FLUSH ASDIRECTED PRN PRN Reason: Keep Vein Open Sodium Chloride (Saline Flush) 2.5 ml FLUSH ASDIRECTED PRN PRN Reason: Keep Vein Open Sodium Chloride (Normal Saline) 10 ml IV ASDIRECTED PRN PRN Reason: IV Use Sterile Water (Sterile Water For Irrigation) 1,000 ml IRR ASDIRECTED PRN PRN Reason: delivery Terbutaline Sulfate (Brethine) 0.25 mg SUBCUT ASDIRECTED PRN PRN Reason: Tacysystole Witch Candi (Tucks) 1 pad TOP ASDIRECTED PRN PRN Reason: comfort care Discontinued Medications Ampicillin Sodium (Ampicillin) Confirm Administered Dose 1 gm .ROUTE .[facility]-MED ONE Stop: 08/10/20 09:47 Last Admin: 08/10/20 09:51 Dose: Not Given Documented by: Ampicillin Sodium (Ampicillin) Confirm Administered Dose 1 gm .ROUTE .[facility]-MED ONE Stop: 08/10/20 13:10 Butorphanol Tartrate (Stadol) 1 mg IVPUSH Q1H PRN PRN Reason: Pain Carboprost Tromethamine (Hemabate Ds) 250 mcg IM ASDIRECTED PRN PRN Reason: Post Hemorrhage Fentanyl (Sublimaze) Confirm Administered Dose 200 mcg .ROUTE .STK-MED ONE Stop: 08/10/20 10:21 Tranexamic Acid 1,000 mg/ (Sodium Chloride) 110 mls @ 660 mls/hr IV ONETIME PRN PRN Reason: Bleeding Ampicillin Sodium 2 gm/ Sodium (Chloride) 100 mls @ 200 mls/hr IV ONETIME ONE Stop: 08/10/20 00:53 Last Admin: 08/10/20 01:00 Dose: 200 mls/hr Documented by: Ampicillin Sodium 1 gm/ Sodium (Chloride) 50 mls @ 100 mls/hr IV Q4H SUN Last Admin: 08/10/20 13:13 Dose: 100 mls/hr Documented by: Sodium Chloride (Normal Saline) Confirm Administered Dose 50 mls @ as directed .ROUTE .[facility]-MED ONE Stop: 08/10/20 09:47 Last Admin: 08/10/20 09:51 Dose: Not Given Documented by: Ropivacaine (Naropin 0.2%) Confirm Administered Dose 100 mls @ as directed .ROUTE .STK-MED ONE Stop: 08/10/20 10:21 Sodium Chloride (Normal Saline) Confirm Administered Dose 50 mls @ as directed .ROUTE .STK-MED ONE Stop: 08/10/20 13:10 Methylergonovine Maleate (Methergine) 0.2 mg IM ASDIRECTED PRN PRN Reason: Post Hemorrhage Misoprostol (Cytotec) 200 mcg PO ONETIME PRN PRN Reason: Post Hemorrhage - Problem List & Annotations (1) Vaginal delivery SNOMED Code(s): 651558343 Code(s): O80 - ENCOUNTER FOR FULL-TERM UNCOMPLICATED DELIVERY Status: Acute Current Visit: No - Problem List Review Problem List Initiated/Reviewed/Updated: Yes - My Orders Last 24 Hours: My Active Orders 08/10/20 00:24 Lidocaine 1% [Xylocaine 1%] 50 ml INJECT ONETIME PRN Nalbuphine [Nubain] 10 mg IVPUSH Q1H PRN Ondansetron [Zofran] 4 mg IVPUSH Q6H PRN Sodium Chloride 0.9% [Normal Saline] 10 ml IV ASDIRECTED PRN Sodium Chloride 0.9% [Saline Flush] 10 ml FLUSH ASDIRECTED PRN Sodium Chloride 0.9% [Saline Flush] 2.5 ml FLUSH ASDIRECTED PRN Terbutaline [Brethine] 0.25 mg SUBCUT ASDIRECTED PRN Water For Irrigation,Sterile [Sterile Water for Irrigation] 1,000 ml IRR ASDIRECTED PRN Resuscitation Status Routine 08/10/20 00:26 Patient Status [ADT] Routine Bedrest Bathroom Privileges [RC] ASDIRECTED Communication Order [RC] ASDIRECTED Communication Order [RC] ASDIRECTED May Shower [RC] ASDIRECTED Notify Provider [RC] PRN Notify Provider [RC] PRN Notify Provider [RC] STAT Oxygen Therapy [RC] ASDIRECTED Up ad Nieves [RC] ASDIRECTED Vaginal Exam [RC] PRN Vital Signs [RC] PER UNIT ROUTINE Vital Signs [RC] PER UNIT ROUTINE Peripheral IV Insertion Adult [OM.PC] Routine 08/10/20 00:30 Lactated Ringers [Ringers, Lactated] 1,000 ml IV ASDIRECTED Oxytocin/0.9 % Sodium Chloride [Oxytocin 30 Unit/500 ML-NS] 30 unit in 500 ml IV TITRATE Oxytocin/0.9 % Sodium Chloride [Oxytocin 30 Unit/500 ML-NS] 30 unit in 500 ml IV TITRATE Medication Administration Instruction [OM.PC] Q3H 08/10/20 00:45 RPR (SYPHILIS SERO) W/ RFLX [REF] Routine 08/10/20 14:20 Notify Provider Vital Signs [RC] ASDIRECTED Acetaminophen [Tylenol Extra Strength] 1,000 mg PO Q6H PRN Benzocaine/Menthol [Dermoplast Pain Relief 20%-0.5% [place]] 78 gm TOP ASDIRECTED PRN Docusate Sodium [Colace] 100 mg PO BID PRN Ibuprofen [Motrin] 800 mg PO Q8H PRN Lanolin [Lansinoh HPA] See Dose Instructions TOP ASDIRECTED PRN bisacodyL [Dulcolax] 10 mg RECTAL ONETIME PRN oxyCODONE 5 mg PO Q2H PRN witch Candi [Tucks] 1 pad TOP ASDIRECTED PRN Breast Pump [WOMSER] Per Unit Routine 08/10/20 14:21 Patient Status [ADT] Routine Cooling Warming Measures [RC] ASDIRECTED May Shower [RC] ASDIRECTED Up ad Nieves [RC] ASDIRECTED Vital Signs [RC] PER UNIT ROUTINE Assess Lochia [WOMSER] Per Unit Routine Assess Uterine Involution [WOMSER] Per Unit Routine Ice Therapy [OM.PC] Per Unit Routine Perineal Care [OM.PC] Per Unit Routine Peripheral IV Discontinue [OM.PC] Routine Sitz Bath [OM.PC] Per Unit Routine 08/10/20 Dinner Regular Diet [DIET] 08/11/20 05:11 HEMOGLOBIN/HEMATOCRIT,HH [HEME] Timed - Assessment Assessment:: 25yo s/p at 39w2d - Plan Plan:: 1. Admit to unit for routine care. 2. Rh negative - Rhogam studies ordered. 3. Rubella equivocal - MMR ordered. 4. GBS positive - received adequate Ampicillin prophylaxis.
[2020-08-10] MEDS: Ibuprofen 800 MG Tab PO PRN (18:40)
[2020-08-10] MEDS: Acetaminophen 500 MG Tab PO PRN (20:12)
[2020-08-10] MEDS: Docusate Sodium 100 MG Cap PO PRN (20:13)
--- NOTE | 2020-08-10 21:00 | OR ---
SURGEON: Renee Fowler MD DATE OF PROCEDURE: 08/10/2020 PREOPERATIVE DIAGNOSES: 1. A 25-year-old G3, P2-0-0-2 at 39 weeks and 2 days' gestation. 2. Elective induction of labor. 3. Group B Streptococcus positive. POSTOPERATIVE DIAGNOSES: 1. A 25-year-old G3, P3-0-0-3 status post spontaneous vaginal delivery at 39 weeks and 2 days' gestation. 2. Elective induction of labor. 3. Group B Streptococcus positive. Received adequate ampicillin prophylaxis. PROCEDURE: Spontaneous vaginal delivery. PRIMARY SURGEON: Renee Fowler MD. ANESTHESIA: Epidural. ESTIMATED BLOOD LOSS: 200 mL. FINDINGS: Live female infant in cephalic presentation. score 9 and 9 at one and five minutes respectively. Weight pending. Open perineal lacerations. Placenta intact with 3-vessel cord. INDICATIONS: This is a 25-year-old, G3, P2-0-0-2, who presented at 39 weeks and 2 days' gestation for induction of labor. Upon presentation, the patient's cervix was found to be 3 to 4 cm dilated. She was begun on Pitocin for induction of labor. Ampicillin was started for GBS prophylaxis. She received an epidural at 5 cm dilated. She underwent artificial rupture of membranes with clear fluid noted, 6 cm dilated. She quickly progressed to complete cervical dilation. DESCRIPTION OF PROCEDURE: I arrived to the room with cervix completely dilated and head at zero station. Over the next 30 minutes the patient pushed and delivered a live female . The head was delivered followed quickly by the shoulders and remainder of the body. The infant was placed on maternal abdomen. After approximately 60 seconds, the cord was clamped and cut. Cord blood was obtained. The placenta then delivered intact with 3-vessel cord via the Blanco- Cote maneuver. The perineum was inspected and no lacerations were noted. Fundus firm below the umbilicus. The patient and tolerated the delivery well. [id number] / MODL /[id number] MTDD
[2020-08-11] MEDS: Acetaminophen 500 MG Tab PO PRN ×3 (00:19→23:46)
[2020-08-11] MEDS: Ibuprofen 800 MG Tab PO PRN ×3 (03:07→21:00)
--- NOTE | 2020-08-11 09:03 | PCM.PNPP ---
- General Info Date of Service: 08/11/20 Functional Status: Reports: Pain Controlled, Tolerating Diet, Ambulating, Urinating - Review of Systems General: Reports: Fatigue. Denies: Fever, Weakness Pulmonary: Denies: Shortness of Breath Cardiovascular: Denies: Chest Pain, Palpitations, Lightheadedness Gastrointestinal: Denies: Abdominal Pain, Nausea, Vomiting Genitourinary: Denies: Flank Pain Musculoskeletal: Reports: No Symptoms Skin: Reports: No Symptoms Neurological: Reports: No Symptoms Psychiatric: Reports: No Symptoms - General Info Date of Service: 08/11/20 - Patient Data Vital Signs - Most Recent: Last Vital Signs Temp 36.3 C 08/11/20 08:00 Pulse 81 08/11/20 08:00 Resp 17 08/11/20 08:00 BP 114/67 08/11/20 08:00 Pulse Ox 96 08/11/20 08:00 Weight - Most Recent: 103.419 kg Lab Results - Last 24 Hours: Laboratory Results - last 24 hr 08/10/20 08/11/20 Range/Units 15:19 05:54 Hgb 10.1 L (12.0-16.0) g/dL Hct 31.8 L (36.0-46.0) % Screen NEGATIVE (NEGATIVE) RhIG Candidate? YES Rhogam Indicated YES, BABY RH POS H Med Orders - Current: Current Medications Acetaminophen (Tylenol Extra Strength) 1,000 mg PO Q6H PRN PRN Reason: Pain Last Admin: 08/11/20 00:19 Dose: 1,000 mg Documented by: Benzocaine/Menthol (Dermoplast Pain Relief 20%-0.5% [place]) 78 gm TOP ASDIRECTED PRN PRN Reason: Perineal Comfort Measure Bisacodyl (Dulcolax) 10 mg RECTAL ONETIME PRN PRN Reason: Constipation Docusate Sodium (Colace) 100 mg PO BID PRN PRN Reason: Constipation Last Admin: 08/10/20 20:13 Dose: 100 mg Documented by: Emollient Ointment (Lansinoh Hpa) 0 gm TOP ASDIRECTED PRN PRN Reason: Sore Nipples Last Admin: 08/10/20 20:13 Dose: 7 gm Documented by: Oxytocin/Sodium Chloride (Oxytocin 30 Unit/500 Ml-Ns) 30 unit in 500 mls @ 999 mls/hr IV TITRATE SUN Oxytocin/Sodium Chloride (Oxytocin 30 Unit/500 Ml-Ns) 30 unit in 500 mls @ 2 mls/hr IV TITRATE SUN; Protocol Last Titration: 08/10/20 14:13 Dose: 999 munits/min, 999 mls/hr Documented by: Lactated Ringer's (Ringers, Lactated) 1,000 mls @ 150 mls/hr IV ASDIRECTED SUN Last Admin: 08/10/20 10:34 Dose: 999 mls/hr Documented by: Ibuprofen (Motrin) 800 mg PO Q8H PRN PRN Reason: Pain Last Admin: 08/11/20 03:07 Dose: 800 mg Documented by: Lidocaine HCl (Xylocaine 1%) 50 ml INJECT ONETIME PRN PRN Reason: Laceration repair Nalbuphine HCl (Nubain) 10 mg IVPUSH Q1H PRN PRN Reason: Pain (severe 7-10) Ondansetron HCl (Zofran) 4 mg IVPUSH Q6H PRN PRN Reason: Nausea/Vomiting Oxycodone HCl (Oxycodone) 5 mg PO Q2H PRN PRN Reason: Pain Sodium Chloride (Saline Flush) 10 ml FLUSH ASDIRECTED PRN PRN Reason: Keep Vein Open Sodium Chloride (Saline Flush) 2.5 ml FLUSH ASDIRECTED PRN PRN Reason: Keep Vein Open Sodium Chloride (Normal Saline) 10 ml IV ASDIRECTED PRN PRN Reason: IV Use Sterile Water (Sterile Water For Irrigation) 1,000 ml IRR ASDIRECTED PRN PRN Reason: delivery Terbutaline Sulfate (Brethine) 0.25 mg SUBCUT ASDIRECTED PRN PRN Reason: Tacysystole Witch Candi (Tucks) 1 pad TOP ASDIRECTED PRN PRN Reason: comfort care Last Admin: 08/10/20 20:13 Dose: 1 tub Documented by: Discontinued Medications Ampicillin Sodium (Ampicillin) Confirm Administered Dose 1 gm .ROUTE .STK-MED ONE Stop: 08/10/20 09:47 Last Admin: 08/10/20 09:51 Dose: Not Given Documented by: Ampicillin Sodium (Ampicillin) Confirm Administered Dose 1 gm .ROUTE .STK-MED ONE Stop: 08/10/20 13:10 Last Admin: 08/10/20 15:44 Dose: Not Given Documented by: Butorphanol Tartrate (Stadol) 1 mg IVPUSH Q1H PRN PRN Reason: Pain Carboprost Tromethamine (Hemabate Ds) 250 mcg IM ASDIRECTED PRN PRN Reason: Post Hemorrhage Fentanyl (Sublimaze) Confirm Administered Dose 200 mcg .ROUTE .STK-MED ONE Stop: 08/10/20 10:21 Last Admin: 08/10/20 15:44 Dose: Not Given Documented by: Tranexamic Acid 1,000 mg/ (Sodium Chloride) 110 mls @ 660 mls/hr IV ONETIME PRN PRN Reason: Bleeding Ampicillin Sodium 2 gm/ Sodium (Chloride) 100 mls @ 200 mls/hr IV ONETIME ONE Stop: 08/10/20 00:53 Last Admin: 08/10/20 01:00 Dose: 200 mls/hr Documented by: Ampicillin Sodium 1 gm/ Sodium (Chloride) 50 mls @ 100 mls/hr IV Q4H SUN Last Admin: 08/10/20 13:13 Dose: 100 mls/hr Documented by: Sodium Chloride (Normal Saline) Confirm Administered Dose 50 mls @ as directed .ROUTE .STK-MED ONE Stop: 08/10/20 09:47 Last Admin: 08/10/20 09:51 Dose: Not Given Documented by: Ropivacaine (Naropin 0.2%) Confirm Administered Dose 100 mls @ as directed .RO [place]AR[place] .STK-MED ONE Stop: 08/10/20 10:21 Last Admin: 08/10/20 15:44 Dose: Not Given Documented by: Sodium Chloride (Normal Saline) Confirm Administered Dose 50 mls @ as directed .ROUTE .STK-MED ONE Stop: 08/10/20 13:10 Last Admin: 08/10/20 15:44 Dose: Not Given Documented by: Measles/Mumps/Rubella Vaccine Live (M-M-R Ii Vaccine) 0.5 ml SUBCUT .ONCE ONE Stop: 08/10/20 14:30 Last Admin: 08/10/20 19:45 Dose: Not Given Documented by: Methylergonovine Maleate (Methergine) 0.2 mg IM ASDIRECTED PRN PRN Reason: Post Hemorrhage Misoprostol (Cytotec) 200 mcg PO ONETIME PRN PRN Reason: Post Hemorrhage - Interaction Support Person: - Recovery Exam Fundal Tone: Firm Fundal Level: 1 Fingerbreadths Below Umbilicus Fundal Placement: Midline Lochia Amount: Scant Lochia Color: Rubra/Red Perineum Description: Intact, Minimal Bruising/Swelling Bladder Status: Voiding Urinary Elimination: Voided - Exam General: Alert, Oriented Lungs: Normal Respiratory Effort Cardiovascular: Regular Rate, Regular Rhythm GI/Abdominal Exam: Normal Bowel Sounds, Soft Extremities: Pedal Edema (trace). No: Patricio's Sign Skin: Warm, Dry, Intact Neurological: No New Focal Deficit Psy/Mental Status: Alert, Normal Affect, Normal Mood - Problem List & Annotations (1) Vaginal delivery SNOMED Code(s): 276602359 Code(s): O80 - ENCOUNTER FOR FULL-TERM UNCOMPLICATED DELIVERY Status: Acute Current Visit: No - Problem List Review Problem List Initiated/Reviewed/Updated: Yes - Assessment Assessment:: 25yo PPD 1 s/p at 39w2d GBBS + - Plan Plan:: Continue PP cares, VS are stable as well as labs.
--- NOTE | 2020-08-11 13:42 | PCM48HPAN ---
Post Anesthesia Note - EVALUATION WITHIN 48HRS OF ANESTHETIC Vital Signs in Normal Range: Yes Patient Participated in Evaluation: Yes Respiratory Function Stable: Yes Airway Patent: Yes Cardiovascular Function Stable: Yes Hydration Status Stable: Yes Pain Control Satisfactory: Yes Nausea and Vomiting Control Satisfactory: Yes Mental Status Recovered: Yes Vital Signs: Last Vital Signs Temp 36.3 C 08/11/20 08:00 Pulse 81 08/11/20 08:00 Resp 17 08/11/20 08:00 BP 114/67 08/11/20 08:00 Pulse Ox 96 08/11/20 08:00 - COMMENTS/OBSERVATIONS Free Text/Narrative:: No anesthesia complications or concerns.
[2020-08-11] MEDS: Docusate Sodium 100 MG Cap PO PRN (21:00)
--- NOTE | 2020-08-12 06:20 | PCM.PNPP ---
- General Info Date of Service: 08/12/20 Functional Status: Reports: Pain Controlled, Tolerating Diet, Ambulating, Urinating - Review of Systems General: Reports: Fatigue. Denies: Fever, Weakness Pulmonary: Denies: Shortness of Breath Cardiovascular: Denies: Chest Pain, Palpitations, Lightheadedness Gastrointestinal: Reports: No Symptoms Genitourinary: Reports: No Symptoms Musculoskeletal: Reports: No Symptoms Skin: Reports: No Symptoms Neurological: Reports: No Symptoms Psychiatric: Reports: No Symptoms - General Info Date of Service: 08/12/20 - Patient Data Vital Signs - Most Recent: Last Vital Signs Temp 36.3 C 08/12/20 05:12 Pulse 74 08/12/20 05:12 Resp 14 08/12/20 05:12 BP 115/54 L 08/12/20 05:12 Pulse Ox 97 08/12/20 05:12 Weight - Most Recent: 103.419 kg I&O - Last 24 Hours: Intake & Output 08/11/20 08/11/20 08/12/20 14:59 22:59 06:59 Intake Total 2 Balance 2 Lab Results - Last 24 Hours: Laboratory Results - last 24 hr 08/10/20 08/11/20 Range/Units 15:19 05:54 Hgb 10.1 L (12.0-16.0) g/dL Hct 31.8 L (36.0-46.0) % Screen NEGATIVE (NEGATIVE) RhIG Candidate? YES Rhogam Indicated YES, BABY RH POS H Med Orders - Current: Current Medications Acetaminophen (Tylenol Extra Strength) 1,000 mg PO Q6H PRN PRN Reason: Pain Last Admin: 08/11/20 23:46 Dose: 1,000 mg Documented by: Benzocaine/Menthol (Dermoplast Pain Relief 20%-0.5% [place]) 78 gm TOP ASDIRECTED PRN PRN Reason: Perineal Comfort Measure Bisacodyl (Dulcolax) 10 mg RECTAL ONETIME PRN PRN Reason: Constipation Docusate Sodium (Colace) 100 mg PO BID PRN PRN Reason: Constipation Last Admin: 08/11/20 21:00 Dose: 100 mg Documented by: Emollient Ointment (Lansinoh Hpa) 0 gm TOP ASDIRECTED PRN PRN Reason: Sore Nipples Last Admin: 08/10/20 20:13 Dose: 7 gm Documented by: Oxytocin/Sodium Chloride (Oxytocin 30 Unit/500 Ml-Ns) 30 unit in 500 mls @ 999 mls/hr IV TITRATE SUN Oxytocin/Sodium Chloride (Oxytocin 30 Unit/500 Ml-Ns) 30 unit in 500 mls @ 2 mls/hr IV TITRATE SUN; Protocol Last Titration: 08/10/20 14:13 Dose: 999 munits/min, 999 mls/hr Documented by: Lactated Ringer's (Ringers, Lactated) 1,000 mls @ 150 mls/hr IV ASDIRECTED SUN Last Admin: 08/10/20 10:34 Dose: 999 mls/hr Documented by: Ibuprofen (Motrin) 800 mg PO Q8H PRN PRN Reason: Pain Last Admin: 08/11/20 21:00 Dose: 800 mg Documented by: Lidocaine HCl (Xylocaine 1%) 50 ml INJECT ONETIME PRN PRN Reason: Laceration repair Nalbuphine HCl (Nubain) 10 mg IVPUSH Q1H PRN PRN Reason: Pain (severe 7-10) Ondansetron HCl (Zofran) 4 mg IVPUSH Q6H PRN PRN Reason: Nausea/Vomiting Oxycodone HCl (Oxycodone) 5 mg PO Q2H PRN PRN Reason: Pain Sodium Chloride (Saline Flush) 10 ml FLUSH ASDIRECTED PRN PRN Reason: Keep Vein Open Sodium Chloride (Saline Flush) 2.5 ml FLUSH ASDIRECTED PRN PRN Reason: Keep Vein Open Sodium Chloride (Normal Saline) 10 ml IV ASDIRECTED PRN PRN Reason: IV Use Sterile Water (Sterile Water For Irrigation) 1,000 ml IRR ASDIRECTED PRN PRN Reason: delivery Terbutaline Sulfate (Brethine) 0.25 mg SUBCUT ASDIRECTED PRN PRN Reason: Tacysystole Witch Candi (Tucks) 1 pad TOP ASDIRECTED PRN PRN Reason: comfort care Last Admin: 08/10/20 20:13 Dose: 1 tub Documented by: Discontinued Medications Ampicillin Sodium (Ampicillin) Confirm Administered Dose 1 gm .ROUTE .STK-MED ONE Stop: 08/10/20 09:47 Last Admin: 08/10/20 09:51 Dose: Not Given Documented by: Ampicillin Sodium (Ampicillin) Confirm Administered Dose 1 gm .ROUTE .STK-MED ONE Stop: 08/10/20 13:10 Last Admin: 08/10/20 15:44 Dose: Not Given Documented by: Butorphanol Tartrate (Stadol) 1 mg IVPUSH Q1H PRN PRN Reason: Pain Carboprost Tromethamine (Hemabate Ds) 250 mcg IM ASDIRECTED PRN PRN Reason: Post Hemorrhage Fentanyl (Sublimaze) Confirm Administered Dose 200 mcg .ROUTE .STK-MED ONE Stop: 08/10/20 10:21 Last Admin: 08/10/20 15:44 Dose: Not Given Documented by: Tranexamic Acid 1,000 mg/ (Sodium Chloride) 110 mls @ 660 mls/hr IV ONETIME PRN PRN Reason: Bleeding Ampicillin Sodium 2 gm/ Sodium (Chloride) 100 mls @ 200 mls/hr IV ONETIME ONE Stop: 08/10/20 00:53 Last Admin: 08/10/20 01:00 Dose: 200 mls/hr Documented by: Ampicillin Sodium 1 gm/ Sodium (Chloride) 50 mls @ 100 mls/hr IV Q4H SUN Last Admin: 08/10/20 13:13 Dose: 100 mls/hr Documented by: Sodium Chloride (Normal Saline) Confirm Administered Dose 50 mls @ as directed .ROUTE .STK-MED ONE Stop: 08/10/20 09:47 Last Admin: 08/10/20 09:51 Dose: Not Given Documented by: Ropivacaine (Naropin 0.2%) Confirm Administered Dose 100 mls @ as directed .ROUTE .STK-MED ONE Stop: 08/10/20 10:21 Last Admin: 08/10/20 15:44 Dose: Not Given Documented by: Sodium Chloride (Normal Saline) Confirm Administered Dose 50 mls @ as directed .ROUTE .STK-MED ONE Stop: 08/10/20 13:10 Last Admin: 08/10/20 15:44 Dose: Not Given Documented by: Measles/Mumps/Rubella Vaccine Live (M-M-R Ii Vaccine) 0.5 ml SUBCUT .ONCE ONE Stop: 08/10/20 14:30 Last Admin: 08/10/20 19:45 Dose: Not Given Documented by: Methylergonovine Maleate (Methergine) 0.2 mg IM ASDIRECTED PRN PRN Reason: Post Hemorrhage Misoprostol (Cytotec) 200 mcg PO ONETIME PRN PRN Reason: Post Hemorrhage - Interaction Support Person: - Recovery Exam Fundal Tone: Firm Fundal Level: 1 Fingerbreadths Below Umbilicus Fundal Placement: Midline Lochia Amount: Scant Lochia Color: Rubra/Red Perineum Description: Intact, Minimal Bruising/Swelling Bladder Status: Voiding Urinary Elimination: Voided - Exam General: Alert, Oriented Lungs: Normal Respiratory Effort Cardiovascular: Regular Rate, Regular Rhythm GI/Abdominal Exam: Normal Bowel Sounds, Soft Extremities: Pedal Edema (trace). No: Patricio's Sign Skin: Warm, Dry, Intact Neurological: No New Focal Deficit Psy/Mental Status: Alert, Normal Affect, Normal Mood - Problem List & Annotations (1) Vaginal delivery SNOMED Code(s): 036643114 Code(s): O80 - ENCOUNTER FOR FULL-TERM UNCOMPLICATED DELIVERY Status: Acute Current Visit: No - Problem List Review Problem List Initiated/Reviewed/Updated: Yes - My Orders Last 24 Hours: My Active Orders 08/12/20 06:17 Ready for Discharge [RC] PER UNIT ROUTINE - Assessment Assessment:: 25yo PPD 2 s/p at 39w2d GBBS + - Plan Plan:: Doing well, . VS are stable Would like to go home today. Discharge instructions reviewed. Follow up at [facility] 4 weeks. Discharge to home today.
[2020-08-12 07:44] VITALS: BP 124/70; PULSE 58
[2020-08-12] MEDS: Ibuprofen 800 MG Tab PO PRN (07:49)
== END 2020-08-12 09:50 | disposition home or self-care (01) | DRG 560 ==
LOC: MW.OBCHECK 00:14 → MW.OB 00:15 → MW.OBCHECK 00:26 → OBSVTOIN 00:26 → MW.OB 00:26
PROVIDERS: ADMIT Obstetrics & Gynecology; ATTEND Obstetrics & Gynecology
PROC: 10E0XZZ Delivery of Products of Conception, External Approach (ICD-10-PCS; principal; 2020-08-10)
PROC: 10907ZC Drainage of Amniotic Fluid, Therapeutic from Products of Conception, Via Natural or Artificial Opening (ICD-10-PCS; 2020-08-10)
PROC: 3E033VJ Introduction of Other Hormone into Peripheral Vein, Percutaneous Approach (ICD-10-PCS; 2020-08-10)
PROC: 3E0R3BZ Introduction of Anesthetic Agent into Spinal Canal, Percutaneous Approach (ICD-10-PCS; 2020-08-10)
PROC: 00HU33Z Insertion of Infusion Device into Spinal Canal, Percutaneous Approach (ICD-10-PCS; 2020-08-10)
DX: O99.824 Streptococcus B carrier state complicating childbirth (principal); Z3A.39 39 weeks gestation of pregnancy; Z37.0 Single live birth; Z88.6 Allergy status to analgesic agent; Z87.891 Personal history of nicotine dependence
CPT/HCPCS: 01967; 36415; 36430; 51702; 59025; 59409; 85014; 85018; 85027; 85460; 86592; 86850; 86900; 86901; A9270-GY; J0290; J2590; J2792; J7050; J7120

== ENCOUNTER 2021-12-22 01:10 | Emergency (ER) | payer BC, OTHER ==
[2021-12-22] MEDS ORDERED: Acetaminophen 325 MG Tab PO ONE (02:26)
[2021-12-22 02:45] VITALS: BP 100/62; PULSE 97
== END 2021-12-22 02:51 | disposition home or self-care (01) ==
LOC: MW.ED 01:10
DX: S06.0X9A Concussion with loss of consciousness of unspecified duration, initial encounter (principal); Z79.899 Other long term (current) drug therapy; Z88.5 Allergy status to narcotic agent; Z88.8 Allergy status to other drugs, medicaments and biological substances; Y04.0XXA Assault by unarmed brawl or fight, initial encounter
CPT/HCPCS: 70450; 72125; 99284; A9270; 99283

== ENCOUNTER 2022-11-15 01:27 | Emergency (ER) | payer BC, OTHER ==
[2022-11-15] MEDS ORDERED: Sodium Chloride 0.9% 10 ML Syringe FLUSH PRN (01:56)
[2022-11-15] MEDS ORDERED: Sodium Chloride 0.9% 2.5 ML Syringe FLUSH PRN (01:56)
[2022-11-15] MEDS ORDERED: Sodium Chloride 0.9% 20 ML SDV IV PRN (01:56)
[2022-11-15] MEDS ORDERED: Sodium Chloride 0.9% 1,000 ML IV SCH (02:00)
[2022-11-15] MEDS: Midazolam 5 MG/ML SDV ONE ×2 (02:19→02:20)
[2022-11-15] MEDS ORDERED: Midazolam 5 MG/ML 2 ML SDV IM STA (02:22)
[2022-11-15 02:48] LABS: ACETAMINOPHEN <2.0 ug/mL; BLOOD UREA NITROGEN,BUN 12 mg/dL (7.0-18.0); CARBON DIOXIDE,CO2 21.2 mmol/L (21.0-32.0); CHLORIDE,CL 102 mmol/L (98-107); GLUCOSE RANDOM 108 mg/dL (74-106); POTASSIUM,K 2.9 mmol/L (3.5-5.1); SODIUM,NA 140 mmol/L (136-145)
[2022-11-15 02:49] LABS: ESTIMATED GFR 105 mL/min (>60)
[2022-11-15] MEDS ORDERED: Potassium Phosphates 3 mMole/ML 15 ML SDV IV ONE (02:53)
[2022-11-15] MEDS ORDERED: Potassium Phosphates 20 MMOLE in Sodium Chloride 0.9% 250 ML IV ONE ×2 (03:00→04:00)
[2022-11-15] MEDS ORDERED: Ondansetron 4 MG/2 ML SDV IVPUSH STA (06:21)
[2022-11-15 06:53] VITALS: BP 117/68; PULSE 81
== END 2022-11-15 06:52 | disposition home or self-care (01) ==
LOC: MW.ED 01:27
DX: F41.0 Panic disorder [episodic paroxysmal anxiety] (principal); E87.6 Hypokalemia; G92.9 Unspecified toxic encephalopathy; F10.929 Alcohol use, unspecified with intoxication, unspecified; F12.90 Cannabis use, unspecified, uncomplicated; E83.39 Other disorders of phosphorus metabolism; Y90.4 Blood alcohol level of 80-99 mg/100 ml; Z88.8 Allergy status to other drugs, medicaments and biological substances; Z79.899 Other long term (current) drug therapy
CPT/HCPCS: 36415; 70450; 71045; 80053; 80143; 80179; 80305; 80307; 83735; 84100; 84703; 85025; 93005; 96361; 96365; 96366; 96372; 96375; 99291; J2250; J2405; J3490; J7030; J7050; 93010; 99292

== ENCOUNTER 2024-09-29 09:05 | Emergency (ER) | payer BC ==
[2024-09-29 09:42] LABS: BASOPHILS ABSOLUTE AUTO 0.06 K/uL (0.00-0.20); BASOPHILS PERCENT AUTO 0.3 % (0.0-1.0); EOSINOPHILS ABSOLUTE AUTO 0.34 K/uL (0.00-0.45); EOSINOPHILS PERCENT AUTO 1.9 % (0.0-6.0); HEMATOCRIT 35.3 % (37.0-47.0); HEMOGLOBIN 12.2 g/dL (12.0-16.0); IMMATURE GRAN ABSOLUTE AUTO 0.06 K/uL (0.00-0.05); IMMATURE GRAN PERCENT AUTO 0.3 % (0.0-0.4); LYMPHOCYTES ABSOLUTE AUTO 1.85 K/uL (1.00-4.80); LYMPHOCYTES PERCENT AUTO 10.6 % (24.0-44.0); MEAN CORPUSCULAR HEMOGLOBIN 30.2 pg (28.0-32.0); MEAN CORPUSCULAR HGB CONC 34.6 g/dL (32.0-36.0); MEAN CORPUSCULAR VOLUME 87.4 fL (83.0-99.0); MEAN PLATELET VOLUME 10.1 fL (9.4-12.3); MONOCYTES ABSOLUTE AUTO 1.04 K/uL (0.00-0.80); MONOCYTES PERCENT AUTO 5.9 % (0.0-8.0); NEUTROPHILS ABSOLUTE AUTO 14.14 K/uL (1.80-7.70); PLATELET COUNT,PLT 296 K/uL (150-400); RED BLOOD CELL COUNT 4.04 M/uL (4.10-5.30); WHITE BLOOD CELL COUNT,WBC 17.49 K/uL (3.9-11.3)
[2024-09-29] MEDS: Sodium Chloride 0.9% 1,000 ML IV ONE (09:47)
[2024-09-29] MEDS: Dexamethasone 4 MG Tab PO ONE (09:47)
[2024-09-29] MEDS: Ondansetron 4 MG/2 ML SDV IVPUSH ONE (09:47)
[2024-09-29 10:06] LABS: APPEARANCE,URINE CLEAR; BILIRUBIN,URINE MODERATE (NEGATIVE); COLOR,URINE YELLOW; GLUCOSE,URINE NEGATIVE (NEGATIVE); KETONES,URINE >=80 mg/dL (NEGATIVE); LEUKOCYTE ESTERASE,URINE NEGATIVE (NEGATIVE); NITRITE,URINE NEGATIVE (NEGATIVE); OCCULT BLOOD,URINE NEGATIVE (NEGATIVE); PH,URINE 7.5 (5.0-8.0); PROTEIN,URINE TRACE mg/dL (NEGATIVE)
[2024-09-29 10:14] LABS: A/G RATIO 0.6 (0.9-1.6); ALANINE AMINOTRANSFERASE,ALT 75 IU/L (14-63); ALBUMIN 2.7 g/dL (3.4-5.0); ALKALINE PHOSPHATASE 222 U/L (46-116); ASPARTATE AMNIOTRANSFERASE,AST 67 IU/L (15-37); BLOOD UREA NITROGEN,BUN 8 mg/dL (7.0-18.0); CALCIUM 8.1 mg/dL (8.5-10.1); CARBON DIOXIDE,CO2 20.6 mmol/L (21.0-32.0); CHLORIDE,CL 102 mmol/L (98-107); CREATININE 0.7 mg/dL (0.6-1.0); EST CRCL DRUG DOSING (CG) 126.16 mL/min; GLUCOSE RANDOM 92 mg/dL (74-106); MAGNESIUM 1.7 mg/dL (1.8-2.4); POTASSIUM,K 3.6 mmol/L (3.5-5.1); PRO B-TYPE NATRIUR PEPT,BNPPRO 89 pg/mL (0-125); SODIUM,NA 137 mmol/L (136-145)
[2024-09-29 10:16] LABS: ESTIMATED GFR 121 mL/min (>60)
[2024-09-29 10:57] LABS: BACTERIA,URINE NOT SEEN (NEGATIVE); EPITHELIAL CELLS,URINE FEW (NONE-FEW); RBC,URINE 0-2 (0-2/HPF); WBC,URINE 0-2 (0-5/HPF)
[2024-09-29 13:04] VITALS: BP 133/56; PULSE 75
== END 2024-09-29 13:04 | disposition home or self-care (01) ==
LOC: MW.ED 09:05
DX: O99.612 Diseases of the digestive system complicating pregnancy, second trimester (principal); A08.4 Viral intestinal infection, unspecified; O99.512 Diseases of the respiratory system complicating pregnancy, second trimester; R05.2 Subacute cough; R06.02 Shortness of breath; O21.9 Vomiting of pregnancy, unspecified; R74.01 Elevation of levels of liver transaminase levels; Z88.1 Allergy status to other antibiotic agents; Z88.5 Allergy status to narcotic agent; Z88.8 Allergy status to other drugs, medicaments and biological substances; Z3A.00 Weeks of gestation of pregnancy not specified
CPT/HCPCS: 36415; 71045; 80053; 81001; 83735; 83880; 84484; 84702; 85025; 87428; 93005; 96360; 99285; J7030; J8540; 93010; 99284